=== PATIENT | male | born 1970 | race Caucasian/White ===

== ENCOUNTER 2016-09-09 13:43 | Observation (INO) | payer OTHER ==
[2016-09-09] MEDS ORDERED: Aspirin Low Dose CHEW TAB* 81 MG PO ONE (14:13)
--- NOTE | 2016-09-09 14:45 | RAD ---
Indication: Chest pain. Single frontal view of the chest performed at 1420 hours was reviewed. No prior study is available for comparison.. No mediastinal shift is noted. Heart is of normal size and configuration. Lung graf appear clear. IMPRESSION: NO ACTIVE CARDIOPULMONARY DISEASE IS NOTED.
[2016-09-09 15:15] LABS: Hematocrit 43 % (42-52); Hemoglobin 14.3 g/dl (14.0-18.0); Mean Corpuscular HGB Conc 34 g/dl (31-36); Mean Corpuscular Hemoglobin 31 pg (27-31); Mean Corpuscular Volume 93 fL (80-94); Mean Platelet Volume 11 um3 (7.4-10.4); Red Blood Count 4.59 10^6/ul (4.0-5.4); Red Cell Distribution Width 13 % (10.5-15); White Blood Count 8.9 10^3/ul (3.5-10.8)
[2016-09-09 15:33] LABS: Albumin 4.7 g/dL (3.2-5.2); BUN/Creatinine Ratio 12.4 (8-20); Calcium 9.8 mg/dL (8.6-10.3); EGFR African American 118.3 (>60); Potassium 3.8 mmol/L (3.5-5.0); Total Bilirubin 0.9 mg/dL (0.2-1.0); Total Protein 7.7 g/dL (6.4-8.9)
[2016-09-09 15:36] LABS: Troponin I 0.05 ng/mL (<0.04)
[2016-09-09] MEDS ORDERED: Nitroglycerin 2% OINT* 1 GM PAK TOPICAL ONE (15:44)
[2016-09-09 17:14] LABS: HDL Cholesterol 36.2 mg/dL
--- NOTE | 2016-09-09 18:51 | ED ---
Day[place] Nicholson Adam, scribed for Barrera Fontana MD on 09/09/16 at 1433 . HPI Chest Pain - HPI Summary HPI Summary: Pt is a 46 year old male presenting with CP. This afternoon he began feeling the pain in his chest accompanied by diaphoresis, SOB, and numbness in his left arm. It set on at 11:45 while he was eating. 3-4 days ago he had similar pain. He was given NTG at the correctional facility and he is currently pain-free. He states that he feels good. PMHx of controlled HTN. - History of Current Complaint Chief Complaint: EDChestPainROMI Time Seen by Provider: 09/09/16 14:13 Pain Intensity: 0 - Allergy/Home Medications Allergies/Adverse Reactions: Allergies Allergy/AdvReac Type Severity Reaction Status Date / Time No Known Allergies Allergy Verified 09/09/16 14:14 Home Medications: Home Medications Enalapril TAB* [Vasotec TAB*] 5 mg PO DAILY 09/09/16 [History Confirmed 09/09/16 ] Hydrochlorothiazide TAB* [Hydrodiuril TAB*] 12.5 mg PO BID 09/09/16 [History Confirmed 09/09/16] Lisinopril [Zestril 5 MG-] 10 mg PO DAILY 09/09/16 [History Confirmed 09/09/16] PMH/Surg Hx/FS Hx/Imm Hx Infectious Disease History: No Infectious Disease History: Denies: Traveled Outside the [place] in Last 30 Days Review of Systems All Other Systems Reviewed And Are Negative: Yes Physical Exam Triage Information Reviewed: Yes Vital Signs On Initial Exam: Initial Vitals Temp Pulse Resp BP Pulse Ox 98.2 F 68 16 132/75 96 09/09/16 13:50 09/09/16 13:50 09/09/16 13:50 09/09/16 13:50 09/09/16 13:50 Vital Signs Reviewed: Yes Diagnostics - Vital Signs Vital Signs Temp Pulse Resp BP Pulse Ox 09/09/16 14:07 99.8 F 58 20 122/72 99 09/09/16 13:50 98.2 F 68 16 132/75 96 - Laboratory Lab Results: Lab Results 09/09/16 09/09/16 09/09/16 Range/Units 15:07 15:07 15:07 WBC 8.9 (3.5-10.8) 10^3/ul RBC 4.59 (4.0-5.4) 10^6/ul Hgb 14.3 (14.0-18.0) g/dl Hct 43 (42-52) % MCV 93 (80-94) fL MCH 31 (27-31) pg MCHC 34 (31-36) g/dl RDW 13 (10.5-15) % Plt Count 180 (150-450) 10^3/ul MPV 11 H (7.4-10.4) um3 Neut % (Auto) 67.3 (38-83) % Lymph % (Auto) 25.5 (25-47) % Hart % (Auto) 6.2 (1-9) % Eos % (Auto) 0.4 (0-6) % Baso % (Auto) 0.6 (0-2) % Absolute Neuts (auto) 6.0 (1.5-7.7) 10^3/ul Absolute Lymphs (auto) 2.3 (1.0-4.8) 10^3/ul Absolute Monos (auto) 0.6 (0-0.8) 10^3/ul Absolute Eos (auto) 0 (0-0.6) 10^3/ul Absolute Basos (auto) 0.1 (0-0.2) 10^3/ul Absolute Nucleated RBC 0 10^3/ul Nucleated RBC % 0.1 Sodium 136 (133-145) mmol/L Potassium 3.8 (3.5-5.0) mmol/L Chloride 103 (101-111) mmol/L Carbon Dioxide 25 (22-32) mmol/L Anion Gap 8 (2-11) mmol/L BUN 11 (6-24) mg/dL Creatinine 0.89 (0.67-1.17) mg/dL Est GFR ( Amer) 118.3 (>60) Est GFR (Non-Af Amer) 92.0 (>60) BUN/Creatinine Ratio 12.4 (8-20) Glucose 80 (70-100) mg/dL Lactic Acid 1.5 (0.5-2.0) mmol/L Calcium 9.8 (8.6-10.3) mg/dL Total Bilirubin 0.90 (0.2-1.0) mg/dL AST 16 (13-39) U/L ALT 12 (7-52) U/L Alkaline Phosphatase 80 (34-104) U/L Troponin I 0.05 H* (<0.04) ng/mL Total Protein 7.7 (6.4-8.9) g/dL Albumin 4.7 (3.2-5.2) g/dL Globulin 3.0 (2-4) g/dL Albumin/Globulin Ratio 1.6 (1-3) Triglycerides 210 mg/dL Cholesterol 152 mg/dL LDL Cholesterol 74 mg/dL HDL Cholesterol 36.2 mg/dL Result Diagrams: 09/09/16 15:07 09/09/16 15:07 Lab Statement: Any lab studies that have been ordered have been reviewed, and results considered in the medical decision making process. Chest Pain Course/Dx - Diagnoses Provider Diagnoses: Angina - Provider Notifications Discussed Care Of Patient With: Dr. Santiago (hospitalist) at 16:00. Discharge - Discharge Plan Condition: Stable Disposition: ADMITTED TO [facility] documentation as recorded by the [place] traore Adam accurately reflects the service I personally performed and the decisions made by , Barrera Fontana MD.
--- NOTE | 2016-09-09 20:08 | HP ---
HOSPITAL MEDICINE HISTORY AND PHYSICAL: DATE OF ADMISSION: 09/09/16 ATTENDING PHYSICIAN: Dr. Albino Santiago * (dictation provided by Khushbu Hodges NP) CHIEF COMPLAINT: Chest pain. HISTORY OF PRESENT ILLNESS: Mr. Leon is a 46-year-old male with a past medical history of hypertension, who presented to the hospital today with concern for chest pain. Mr. Leon states he first had chest pain 3 days ago that was associated with pushing a fellow inmate in a wheelchair. He had immediate pain substernally that radiated in to his left arm associated with some mild diaphoresis and shortness of breath. There was no nausea. He went back to his cell and rested for about 10 minutes and then felt better. Today, he was eating lunch when he had the sudden onset again, while sitting, of chest discomfort substernally that radiated into his left arm, associated again with diaphoresis and shortness of breath. He spoke to the guards who had him taken to the [facility] and ultimately transitioned to [facility]. The patient denies any other complaints. He has had no recent illnesses. No fever or chills. He has been eating and drinking normally. He is a very active person and exercises quite heavily on a regular basis without any chest discomfort. In the emergency room, Mr. Leon's first troponin was 0.05. His EKG shows sinus rhythm with no evidence of ischemia. PAST MEDICAL HISTORY: Hypertension. MEDICATIONS: 1. Enalapril 5 mg p.o. daily. 2. Hydrochlorothiazide 12.5 mg p.o. b.i.d. 3. Lisinopril 10 mg p.o. daily. ALLERGIES: No known drug allergies. FAMILY HISTORY: The patient reports his mother has hypertension. His dad at 27 in a car accident. He does not know any further history of the family. SOCIAL HISTORY: No report of alcohol or history of drug use. The patient states that he does smoke cigarettes about 5 to 8 per day. REVIEW OF SYSTEMS: A 14-point review of systems was completed with Mr. Leon and all those not mentioned above were negative. PHYSICAL EXAMINATION GENERAL: Mr. Leon is sitting up in the bed. He is in no acute distress. VITAL SIGNS: Temperature 99.8, heart rate 71, respiratory rate 14, O2 saturation 100% on room air, blood pressure 127/77. LUNGS: Clear to auscultation bilaterally with no accessory muscle use and good aeration. HEART: S1, S2. No murmur, rub, or gallop, and regular. ABDOMEN: Soft, nontender with bowel sounds positive x4. EXTREMITIES: No cyanosis or edema. NEURO: He is alert and oriented x3. He moves all extremities equally. There is no facial asymmetry or focal weakness. Extraocular movements are intact. SKIN: Intact. DIAGNOSTIC STUDIES/LAB DATA: Sodium 136, potassium 3.8, chloride 103, serum bicarbonate 25, BUN 11, creatinine 0.89, glucose 80. Troponin 0.05. WBC 8.9, hemoglobin 14.3, hematocrit 43, platelet count 180. EKG shows sinus rhythm with heart rate of 60 with no evidence of ischemia. Chest x-ray shows no acute intrathoracic process. ASSESSMENT AND PLAN: Mr. Leon is a 46-year-old male with past medical history of hypertension, who presents today to the hospital today with report of two episodes of chest pain, one with activity and one while at rest, that radiated into his left arm and was associated with diaphoresis and shortness of breath. Our plans are for observation in the hospital for the followin. Chest pain: The patient's first troponin is 0.05, though his EKG shows no evidence of ischemia. Our plan will be to repeat troponins x2. He will have repeated EKGs with any further chest discomfort. He has received aspirin and nitroglycerin. Will continue with aspirin daily. Based on the clinical course , consideration will be given for outpatient versus stress testing on Monday, but given that his troponin is already elevated, he will likely need to stay until Monday for inpatient stress testing. 2. Hypertension. Plan to continue home medications of enalapril, lisinopril, and hydrochlorothiazide. 3. DVT prophylaxis with heparin subcu. 4. Disposition to telemetry floor. TIME SPENT: Approximately 60 minutes was spent on the admission of this patient ; more than half the time was spent with the patient at the bedside reviewing the events leading up to this hospitalization, performing the physical examination, and reviewing the plan of care. KHUSHBU HODGES NP CC: [facility] [place]* [id number]/CPS #: [id number] TRACI
[2016-09-09] MEDS: Heparin VIAL(*) 5000 UNITS/ML VIAL (FIVE THOUSAND) SUBCUT SCH (20:20)
[2016-09-09] MEDS: Hydrochlorothiazide TAB* 25 MG PO SCH (20:20)
[2016-09-10] MEDS ORDERED: Acetaminophen TAB* 325 MG PO PRN (00:45)
[2016-09-10] MEDS: Heparin VIAL(*) 5000 UNITS/ML VIAL (FIVE THOUSAND) SUBCUT SCH ×3 (05:48→21:50)
[2016-09-10] MEDS: Hydrochlorothiazide TAB* 25 MG PO SCH ×2 (08:55→21:50)
[2016-09-10] MEDS: Lisinopril TAB* 5 MG PO SCH (08:56)
[2016-09-10] MEDS: Aspirin TAB* 325 MG PO SCH (08:56)
[2016-09-10] MEDS: Enalapril TAB* 5 MG PO SCH (08:57)
--- NOTE | 2016-09-10 13:18 | PN ---
Subjective Date of Service: 09/10/16 Interval History: Pt has no more CP Objective Active Medications: Acetaminophen (Tylenol Tab*) 650 mg PO Q6H PRN PRN Reason: FEVER/PAIN Last Admin: 09/10/16 01:17 Dose: 650 mg Aspirin (Aspirin Tab*) 325 mg PO DAILY [facility] Last Admin: 09/10/16 08:56 Dose: 325 mg Enalapril Maleate (Vasotec Tab*) 5 mg PO DAILY [facility] Last Admin: 09/10/16 08:57 Dose: 5 mg Heparin Sodium (Porcine) (Heparin Vial(*)) 5,000 units SUBCUT Q8HR [facility] Last Admin: 09/10/16 05:48 Dose: 5,000 units Hydrochlorothiazide (Hydrodiuril Tab*) 12.5 mg PO BID [facility] Last Admin: 09/10/16 08:55 Dose: 12.5 mg Lisinopril (Prinivil Tab*) 10 mg PO DAILY [facility] Last Admin: 09/10/16 08:56 Dose: 10 mg Vital Signs 09/09/16 09/09/16 09/09/16 16:30 17:34 17:35 Temperature 97.9 F 97.9 F Pulse Rate 68 74 74 Respiratory 14 16 16 Rate Blood Pressure 146/87 133/71 133/71 (mmHg) O2 Sat by Pulse 100 99 99 Oximetry 09/09/16 09/10/16 09/10/16 19:18 00:11 03:43 Temperature 98.2 F 98.3 F 97.8 F Pulse Rate 66 68 80 Respiratory 17 16 20 Rate Blood Pressure 124/70 123/85 113/76 (mmHg) O2 Sat by Pulse 99 100 99 Oximetry 09/10/16 09/10/16 07:54 08:00 Temperature 98.6 F Pulse Rate 72 Respiratory 16 16 Rate Blood Pressure 110/75 (mmHg) O2 Sat by Pulse 99 Oximetry Oxygen Devices in Use Now: None Appearance: 46 yo M in NAD, aAOx3 Eyes: No Scleral Icterus, PERRLA Ears/Nose/Mouth/Throat: NL Teeth, Lips, Gums, Mucous Membranes Moist Neck: NL Appearance and Movements; NL JVP, Trachea Midline Respiratory: Symmetrical Chest Expansion and Respiratory Effort, Clear to Auscultation Cardiovascular: NL Sounds; No Murmurs; No JVD, RRR Abdominal: NL Sounds; No Tenderness; No Distention, No Hepatosplenomegaly Lymphatic: No Cervical Adenopathy Extremities: No Edema, No Clubbing, Cyanosis Skin: No Rash or Ulcers, No Nodules or Sclerosis Neurological: Alert and Oriented x 3, NL Muscle Strength and Tone Result Diagrams: 09/09/16 15:07 09/09/16 15:07 Additional Lab and Data: Lab Results 09/09/16 09/09/16 09/09/16 Range/Units 15:07 15:07 15:07 WBC 8.9 (3.5-10.8) 10^3/ul RBC 4.59 (4.0-5.4) 10^6/ul Hgb 14.3 (14.0-18.0) g/dl Hct 43 (42-52) % MCV 93 (80-94) fL MCH 31 (27-31) pg MCHC 34 (31-36) g/dl RDW 13 (10.5-15) % Plt Count 180 (150-450) 10^3/ul MPV 11 H (7.4-10.4) um3 Neut % (Auto) 67.3 (38-83) % Lymph % (Auto) 25.5 (25-47) % Whitman % (Auto) 6.2 (1-9) % Eos % (Auto) 0.4 (0-6) % Baso % (Auto) 0.6 (0-2) % Absolute Neuts (auto) 6.0 (1.5-7.7) 10^3/ul Absolute Lymphs (auto) 2.3 (1.0-4.8) 10^3/ul Absolute Monos (auto) 0.6 (0-0.8) 10^3/ul Absolute Eos (auto) 0 (0-0.6) 10^3/ul Absolute Basos (auto) 0.1 (0-0.2) 10^3/ul Absolute Nucleated RBC 0 10^3/ul Nucleated RBC % 0.1 Sodium 136 (133-145) mmol/L Potassium 3.8 (3.5-5.0) mmol/L Chloride 103 (101-111) mmol/L Carbon Dioxide 25 (22-32) mmol/L Anion Gap 8 (2-11) mmol/L BUN 11 (6-24) mg/dL Creatinine 0.89 (0.67-1.17) mg/dL Est GFR ( Amer) 118.3 (>60) Est GFR (Non-Af Amer) 92.0 (>60) BUN/Creatinine Ratio 12.4 (8-20) Glucose 80 (70-100) mg/dL Lactic Acid 1.5 (0.5-2.0) mmol/L Calcium 9.8 (8.6-10.3) mg/dL Total Bilirubin 0.90 (0.2-1.0) mg/dL AST 16 (13-39) U/L ALT 12 (7-52) U/L Alkaline Phosphatase 80 (34-104) U/L Troponin I 0.05 H* (<0.04) ng/mL Total Protein 7.7 (6.4-8.9) g/dL Albumin 4.7 (3.2-5.2) g/dL Globulin 3.0 (2-4) g/dL Albumin/Globulin Ratio 1.6 (1-3) Triglycerides 210 mg/dL Cholesterol 152 mg/dL LDL Cholesterol 74 mg/dL HDL Cholesterol 36.2 mg/dL Assess/Plan/Problems-Billing Assessment: 46 yo M with h/o HTN , smoking, presents with exertional CP - Patient Problems (1) Chest pain Comment: exertional trop 0.06 max. EKG unremarkable. D/w cardiology. Pt will need to stay for stress on Monday. Cont ASA tx and telem monitoring. (2) HTN (hypertension) Comment: controlled, cont home meds (3) DVT prophylaxis Comment: heparin sc (4) Smoking Comment: cessation recommended will start nicotine patch Status and Disposition: OBV
[2016-09-10] MEDS: Nicotine PATCH 14 MG/24 HR* PATCH TRANSDERM SCH (14:24)
[2016-09-10] MEDS: Nicotine Patch Removal NOTE PATCH OFF SCH (21:52)
[2016-09-11] MEDS: Heparin VIAL(*) 5000 UNITS/ML VIAL (FIVE THOUSAND) SUBCUT SCH ×3 (05:56→20:17)
[2016-09-11 08:09] LABS: HDL Cholesterol 36.6 mg/dL
[2016-09-11] MEDS: Hydrochlorothiazide TAB* 25 MG PO SCH ×2 (09:40→20:17)
[2016-09-11] MEDS: Lisinopril TAB* 5 MG PO SCH (09:40)
[2016-09-11] MEDS: Enalapril TAB* 5 MG PO SCH (09:40)
[2016-09-11] MEDS: Aspirin TAB* 325 MG PO SCH (09:40)
[2016-09-11] MEDS: Nicotine PATCH 14 MG/24 HR* PATCH TRANSDERM SCH (09:41)
--- NOTE | 2016-09-11 15:10 | PN ---
Subjective Date of Service: 09/11/16 Interval History: No CP since admission. Feels fine Objective Active Medications: Acetaminophen (Tylenol Tab*) 650 mg PO Q6H PRN PRN Reason: FEVER/PAIN Last Admin: 09/10/16 01:17 Dose: 650 mg Aspirin (Aspirin Tab*) 325 mg PO DAILY [facility] Last Admin: 09/11/16 09:40 Dose: 325 mg Enalapril Maleate (Vasotec Tab*) 5 mg PO DAILY [facility] Last Admin: 09/11/16 09:40 Dose: 5 mg Heparin Sodium (Porcine) (Heparin Vial(*)) 5,000 units SUBCUT Q8HR [facility] Last Admin: 09/11/16 14:20 Dose: 5,000 units Hydrochlorothiazide (Hydrodiuril Tab*) 12.5 mg PO BID [facility] Last Admin: 09/11/16 09:40 Dose: 12.5 mg Lisinopril (Prinivil Tab*) 10 mg PO DAILY [facility] Last Admin: 09/11/16 09:40 Dose: 10 mg Nicotine (Nicotine Patch 14 Mg/24 Hr*) 1 patch TRANSDERM Q24HR [facility] Last Admin: 09/11/16 09:41 Dose: Not Given Pharmacy Profile Note (Nicotine Patch Removal Note*) 1 note PATCH OFF [address] [facility] Last Admin: 09/10/16 21:52 Dose: 1 note Vital Signs 09/10/16 09/10/16 09/10/16 15:19 19:19 23:25 Temperature 98.4 F 98.0 F 99.3 F Pulse Rate 71 79 67 Respiratory 17 18 16 Rate Blood Pressure 125/79 132/75 131/80 (mmHg) O2 Sat by Pulse 100 100 99 Oximetry 09/11/16 09/11/16 09/11/16 03:54 07:28 11:31 Temperature 99.1 F 98.3 F 98.2 F Pulse Rate 83 49 75 Respiratory 16 Rate Blood Pressure 115/78 115/71 114/75 (mmHg) O2 Sat by Pulse 100 98 99 Oximetry Oxygen Devices in Use Now: None Appearance: 46 yo M in NAd, aAOx3 Eyes: No Scleral Icterus, PERRLA Ears/Nose/Mouth/Throat: NL Teeth, Lips, Gums, Mucous Membranes Moist Neck: NL Appearance and Movements; NL JVP, Trachea Midline Respiratory: Symmetrical Chest Expansion and Respiratory Effort, Clear to Auscultation Cardiovascular: NL Sounds; No Murmurs; No JVD, RRR Abdominal: NL Sounds; No Tenderness; No Distention Lymphatic: No Cervical Adenopathy Extremities: No Edema, No Clubbing, Cyanosis Skin: No Rash or Ulcers, No Nodules or Sclerosis Neurological: Alert and Oriented x 3, NL Muscle Strength and Tone Result Diagrams: 09/09/16 15:07 09/09/16 15:07 Additional Lab and Data: Lab Results 09/09/16 09/09/16 09/09/16 Range/Units 15:07 15:07 15:07 WBC 8.9 (3.5-10.8) 10^3/ul RBC 4.59 (4.0-5.4) 10^6/ul Hgb 14.3 (14.0-18.0) g/dl Hct 43 (42-52) % MCV 93 (80-94) fL MCH 31 (27-31) pg MCHC 34 (31-36) g/dl RDW 13 (10.5-15) % Plt Count 180 (150-450) 10^3/ul MPV 11 H (7.4-10.4) um3 Neut % (Auto) 67.3 (38-83) % Lymph % (Auto) 25.5 (25-47) % Slope % (Auto) 6.2 (1-9) % Eos % (Auto) 0.4 (0-6) % Baso % (Auto) 0.6 (0-2) % Absolute Neuts (auto) 6.0 (1.5-7.7) 10^3/ul Absolute Lymphs (auto) 2.3 (1.0-4.8) 10^3/ul Absolute Monos (auto) 0.6 (0-0.8) 10^3/ul Absolute Eos (auto) 0 (0-0.6) 10^3/ul Absolute Basos (auto) 0.1 (0-0.2) 10^3/ul Absolute Nucleated RBC 0 10^3/ul Nucleated RBC % 0.1 Sodium 136 (133-145) mmol/L Potassium 3.8 (3.5-5.0) mmol/L Chloride 103 (101-111) mmol/L Carbon Dioxide 25 (22-32) mmol/L Anion Gap 8 (2-11) mmol/L BUN 11 (6-24) mg/dL Creatinine 0.89 (0.67-1.17) mg/dL Est GFR ( Amer) 118.3 (>60) Est GFR (Non-Af Amer) 92.0 (>60) BUN/Creatinine Ratio 12.4 (8-20) Glucose 80 (70-100) mg/dL Lactic Acid 1.5 (0.5-2.0) mmol/L Calcium 9.8 (8.6-10.3) mg/dL Total Bilirubin 0.90 (0.2-1.0) mg/dL AST 16 (13-39) U/L ALT 12 (7-52) U/L Alkaline Phosphatase 80 (34-104) U/L Troponin I 0.05 H* (<0.04) ng/mL Total Protein 7.7 (6.4-8.9) g/dL Albumin 4.7 (3.2-5.2) g/dL Globulin 3.0 (2-4) g/dL Albumin/Globulin Ratio 1.6 (1-3) Triglycerides 210 mg/dL Cholesterol 152 mg/dL LDL Cholesterol 74 mg/dL HDL Cholesterol 36.2 mg/dL Assess/Plan/Problems-Billing Assessment: 46 yo M with h/o HTN , smoking, presents with exertional CP - Patient Problems (1) Chest pain Comment: exertional trop 0.06 max. EKG unremarkable. D/w cardiology. Stress on Monday. Cont ASA tx and telem monitoring. (2) HTN (hypertension) Comment: controlled, cont home meds (3) DVT prophylaxis Comment: heparin sc (4) Smoking Comment: cessation recommended cont nicotine patch Status and Disposition: OBV
[2016-09-11] MEDS: Nicotine Patch Removal NOTE PATCH OFF SCH (20:22)
[2016-09-12] MEDS: Heparin VIAL(*) 5000 UNITS/ML VIAL (FIVE THOUSAND) SUBCUT SCH ×2 (05:40→14:08)
[2016-09-12 07:53] VITALS: BP 113/79
[2016-09-12] MEDS: Nicotine PATCH 14 MG/24 HR* PATCH TRANSDERM SCH (08:51)
--- NOTE | 2016-09-12 13:28 | RAD ---
HISTORY: Chest pain, hypertension COMPARISONS: None TECHNIQUE: A 1 day stress/rest myocardial perfusion study was performed, with exercise stress. The exercise portion was performed using the Damien protocol, for a total METs of 10.1. The stress portion was monitored by Dr. Cortes. Gated SPECT imaging was performed, with CT-based attenuation correction DOSE: Stress: Technetium 99m tetrofosmin, 25.44 millicuries, injected at 11:55 AM on September 12, 2016 Rest: Technetium 99m tetrofosmin, 10.42 millicuries, injected at 8:35 AM on September 12, 2016 Pharmacologic agent: None FINDINGS: CARDIAC MONITORING: No changes of ischemia with stress. EF: 54 % TID: 1.04 MOTION: There is mild hypokinesia of the septum PERFUSION: There are no fixed or reversible perfusion defects. OTHER: None IMPRESSION: NO FIXED OR REVERSIBLE PERFUSION DEFECTS ASSESSMENT: LOW RISK. Based on imaging criteria from ACC/AHA 2002. Guideline Update for the Management of Patient's with Chronic Stable Angina, table 23. Noninvasive Risk Stratification.
[2016-09-12] MEDS: Hydrochlorothiazide TAB* 25 MG PO SCH (14:05)
[2016-09-12] MEDS: Aspirin TAB* 325 MG PO SCH (14:07)
[2016-09-12] MEDS: Enalapril TAB* 5 MG PO SCH (14:07)
[2016-09-12] MEDS: Lisinopril TAB* 5 MG PO SCH (14:08)
--- NOTE | 2016-09-13 04:29 | DS ---
DISCHARGE SUMMARY: DATE OF ADMISSION: 09/09/16 DATE OF DISCHARGE: 09/12/16 PRIMARY CARE PROVIDER: Provider from [facility]. DISCHARGE DIAGNOSIS: Exertional chest pain with low probability cardiac stress test documented on 09/12/16. SECONDARY DIAGNOSIS: Hypertension. MEDICATIONS AT DISCHARGE: Unchanged from home and include: 1. Enalapril 5 mg a day. 2. Hydrochlorothiazide 12.5 mg b.i.d. 3. Lisinopril 10 mg daily. LABORATORY DATA AND STUDIES PERFORMED DURING THE HOSPITAL STAY: Included: Lipid profile on 09/11/16 showed triglycerides of 198, cholesterol total of 141 , LDL of 75, and HDL of 36. The patient's troponin peaked at 0.06. EKG was unremarkable. Nuclear medicine cardiac stress test documented on 09/12/16 showed no fixed or reversible perfusion defects, and an EF of 54%. HOSPITALIZATION COURSE: Mr. Leon is a 46-year-old male, an inmate from [facility], who complained of exertional chest pain when he was pushing another inmate in a wheelchair. The patient has a history of hypertension and history of heart disease on mother's side. The patient's initial troponin was 0.05. The second one was 0.06. The patient's troponins peaked at 0.06. He experienced no more chest pain. He states, in fact, he works out on a daily basis without chest pain otherwise, apart from the episode when he was walking and pushing a colleague in the wheelchair. Nevertheless, due to indeterminate troponin, Cardiology consult was curbsided and recommended for the patient to stay over the weekend for a cardiac stress test that could be performed on Monday. On 09/12/16, the patient underwent a cardiac stress test, which was unremarkable. The patient is going to be discharged home with unchanged medications. PHYSICAL EXAMINATION AT THE TIME OF DISCHARGE: Blood pressure of 113/79, heart rate of 64 and regular, respiratory rate 16, oxygen saturation 100% on room air , temperature 97.9. General: The patient is a very pleasant 46-year-old male, who is in no acute distress. Alert, awake, and oriented x3. HEENT: Head: Atraumatic, normocephalic. Eyes: Pupils equal and reactive to light and accommodation. Oropharynx clear. Mucosa moist. Neck: Supple. No JVD and no bruits bilaterally. Cardiovascular: Regular rate and rhythm. No murmurs. Respiratory: Clear to auscultation bilaterally. Abdomen: Soft, nontender. Bowel sounds present in all 4 quadrants. Extremities: There is no edema. Pulses are 2+ bilaterally. No clubbing or cyanosis. On evaluation of the skin , the patient has small area of erythema in the place of an old IV and it was discontinued today and that is on his left forearm. Please note that at discharge, the patient was noted to have a tiny bit of erythema in the place of left forearm IV. The IV was discontinued. The area does not appear to have some cellulitis, but may be focal agitation versus superficial phlebitis. The area is nontender to palpation. There is no streaking to suggest cellulitis. The patient was reassured. The patient is recommended to follow up with his primary care provider in approximately 4 to 7 days. TIME SPENT: Approximately 35 minutes were spent on the patient's discharge. CC: [facility] physician* [id number]/CPS #: [id number] TRACI
== END 2016-09-12 16:08 ==
LOC: ED 13:43 → MEDTELE 16:04 → EEVIPCON 16:04
PROVIDERS: ADMIT Internal Medicine; ATTEND Internal Medicine
DX: R07.89 Other chest pain (principal); I10 Essential (primary) hypertension; R06.02 Shortness of breath; Z79.899 Other long term (current) drug therapy; F17.210 Nicotine dependence, cigarettes, uncomplicated
CPT/HCPCS: 36415; 71010; 78452; 80053; 80061; 83605; 84484; 85025; 86703; 93005; 93017; 96372; 99283; A9270-GY; A9502; G0378; J1644